=== PATIENT | male | born 1940 | race Caucasian/White ===

== ENCOUNTER 2017-09-10 09:57 | Inpatient (IN) | payer MEDICARE, BC ==
[~2017-09-10 09:57] MED LIST: CEFAZOLIN 2 Gram 2 GM/50 ML BAG IVPB ONE; CELECOXIB 100 MG CAPSULE PO ONE; FAMOTIDINE 20MG TABLET PO ONE; MECLIZINE 25 MG TABLET PO ONE; METOCLOPRAMIDE 10 MG TABLET PO ONE; VANCOMYCIN HCL 1,000 MG in DEXTROSE 5 % IN WATER 250 ML IVPB ONE
[2017-09-10 11:12] LABS: ABO GROUP O; RH TYPE NEGATIVE
[2017-09-10 11:13] LABS: ANTIBODY SCREEN POSITIVE (NEGATIVE)
[2017-09-10] MEDS ORDERED: 0.9 % SODIUM CHLORIDE 10 ML VIAL IVP ONE (14:00)
[2017-09-10] MEDS ORDERED: TRANEXAMIC ACID 1,000 MG/10 ML ML IV ONE (14:00)
[2017-09-10] MEDS ORDERED: ONDANSETRON HCL IV 4 MG/2 ML VIAL IVP PRN (14:02)
[2017-09-10] MEDS ORDERED: AL HYDROX/MAG HYDROX 30ML UD PO PRN (14:02)
[2017-09-10] MEDS ORDERED: TRAMADOL HCL 50 MG TABLET PO PRN (14:02)
[2017-09-10] MEDS ORDERED: NALOXONE 0.4 MG/1 ML VIAL IVP PRN (14:02)
[2017-09-10] MEDS ORDERED: BISACODYL 10 MG SUPP RC PRN (14:02)
[2017-09-10] MEDS ORDERED: ZOLPIDEM TARTRATE 5 MG TABLET PO PRN (14:02)
[2017-09-10] MEDS ORDERED: MAGNESIUM HYDROXIDE 30 ML UDC PO PRN (14:02)
[2017-09-10] MEDS ORDERED: ACETAMINOPHEN W/ CODEINE 300MG/60MG TABLET PO PRN ×2 (14:02)
[2017-09-10] MEDS ORDERED: DIPHENHYDRAMINE HCL 25 MG CAPSULE PO PRN (14:02)
[2017-09-10] MEDS ORDERED: HYDROCODONE/APAP 10/325 TABLET PO PRN (14:02)
[2017-09-10] MEDS ORDERED: ACETAMINOPHEN 325 MG TAB PO PRN (14:02)
[2017-09-10] MEDS ORDERED: HYDROMORPHONE HCL 2 MG/ML VIAL IM PRN (14:02)
[2017-09-10] MEDS ORDERED: KETOROLAC 30 MG/ML VIAL IVP PRN ×2 (14:02)
[2017-09-10] MEDS: HYDROCODONE/APAP 10/325 TABLET PO PRN (15:12)
--- NOTE | 2017-09-10 16:29 | Operative Note ---
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 POSTOPERATIVE DIAGNOSIS: PROFOUND END-STAGE ARTHROSIS OF THE LEFT KNEE. PROCEDURE: Cemented left total knee arthroplasty using [employer] Cony II components with a size 7 Bradshaw Chrome femur, size 7 stemmed tibial baseplate, an 11 mm lipped tibial insert, and a 35 mm all-plastic patella. STAFF SURGEON: JULIAN ZEE M.D. ANESTHESIA: GENERAL. PREPARATION: CHLORAPREP. INDIVIDUAL CONSIDERATIONS: This was not a standard procedure. This man had longstanding arthrosis with limited motion and an intramedullary nail. This required special techniques freehand-type to try and get the implants in because the normal guides could not be used. PROCEDURE: The patient was taken to the Operating Room and placed supine on the operating table. He had the successful induction of a general anesthetic. His left lower extremity was prepped and draped in the usual fashion. The patient had a midline approach to the knee. Sharp dissection was carried down through the skin and subcutaneous tissue. Small veins were coagulated with a Bovie. A medial arthrotomy was performed. The patella was everted and the knee was flexed. The patient's knee was destroyed. The ACL was sacrificed, fat pad was resected, provisional anterior meniscectomies were performed. The medial capsule was completely scarred. This was released from the medial proximal tibia. There was tremendous scarring around the femur and this was all released sharply. Once I did this and everted the patella, I was able to flex him to 90 degrees; initially it was only about 30. I could not use an intramedullary cutting jig. I basically put the guide with the pegs up against the femur, eyeballed it, adjusted it for bone loss medially, adjusted for rotation, and secured it with pins. I set it for roughly a 10 to 11 mm resection. The initial transverse cut was then made. Skin guide was placed in the anterior and posterior ship pilot holes. It was found that a size 7 would be appropriate. The anterior and posterior cuts followed by chamfer cuts were made. Osteophytes removed including osteophytes within the medial collateral and a size 7 trial was placed and found to fit well. The tibia was brought forward after debriding out the posterior compartments thoroughly and releasing scar from the femur and from the proximal tibia. The extra-articular tibia cutting jig was placed and it was cut in 7.0 degrees of valgus and adjusted for rotation and secured with pins for a 9 mm resection. When cutting the tibia, care was taken to preserve the PCL insertion on the tibia. After making the cut, huge osteophytes medially and posteromedially and some posterolaterally were removed and after removing osteophytes, I could still fit a size 7 implant. It was adjusted for rotation and secured with pins. With a 9 and then later an 11 mm implant, there was excellent motion and stability. Ligamentous balance, rotation, and alignment were thought to be normal. The femoral ship pilot holes were impacted, and the triflange tibial stamp was impacted, and these trial components were removed. The patient had a very thick patella with huge osteophytes and roughly 9 mm was removed with an oscillating saw and I was easily able to fit a 35 patella and the three ship pilot holes were drilled. The tourniquet was let down briefly to get bleeders posteriorly then placed back up again. Now, I did thorough irrigation with pulsatile Betadine and saline to remove any visual or palpable debris. Bony surfaces were then dried. A size 7 stem tibial baseplate was impacted into place, followed by impaction of the 11 mm lipped tibial insert, followed by cementing in the size 7 Bradshaw Chrome femur, followed by cementing of the 35 mm patella. Implant surfaces were compressed, excess cement was removed, and after the cement had set, I had reasonable motion. I actually could flex even with the patella to about 105 degrees. It was stable to varus and valgus and the tracking was normal. I did not require a lateral release. The tourniquet was let down and hemostasis was obtained with the Bovie. Again, thorough irrigation with pulsatile Betadine and saline to remove any visual or palpable debris. The periosteum, skin, and subcutaneous tissues were infiltrated with 0.75% Marcaine with Epinephrine. The capsule was then closed with a running #2 Quill, subcut was closed with running #0 Quill, and the skin was closed with ayesha. A gram of Tranexamic Acid was mixed with30 mL of saline and it was injected into the knee through a sterile 18-gauge needle and sterile Bulkee compressive dressing, Aquacel-type, was applied. The patient tolerated the procedures well. Needle and sponge counts were correct. Estimated blood loss was minimal. He was taken back to Recovery in good condition. There were no complications. JOB NUMBER: [id number] MTDD
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
[2017-09-10] MEDS: POTASSIUM CHLORIDE/D5-0.9%NACL 20 MEQ/1,000 ML BAG IV SCH (17:09)
[2017-09-10] MEDS: VOTRIENT 200 MG PO SCH ×2 (17:11→21:34)
[2017-09-10] MEDS: CEFAZOLIN 2 Gram 2 GM/50 ML BAG IVPB SCH (20:25)
[2017-09-10] MEDS: DOCUSATE SODIUM 100 MG CAPSULE PO SCH (21:28)
[2017-09-10] MEDS: PATIENT OWN MED: METOPROLOL TARTRATE 25 MG PO SCH (21:30)
[2017-09-10] MEDS ORDERED: PATIENT OWN MED: MULTIVITAMIN PO SCH (22:00)
[2017-09-10] MEDS ORDERED: PATIENT OWN MED: LOSARTAN 100 MG PO SCH (22:00)
[2017-09-10] MEDS ORDERED: HYDROCORTISONE 5 MG PO SCH (22:00)
[2017-09-10] MEDS ORDERED: LEVOTHYROXINE SODIUM 25 MCG TABLET PO SCH (22:00)
[2017-09-10] MEDS ORDERED: NIFEDIPINE 30 MG PO SCH (22:00)
[2017-09-11] MEDS: POTASSIUM CHLORIDE/D5-0.9%NACL 20 MEQ/1,000 ML BAG IV SCH ×2 (00:52→06:18)
[2017-09-11] MEDS: CEFAZOLIN 2 Gram 2 GM/50 ML BAG IVPB SCH ×2 (03:12→11:14)
[2017-09-11 06:33] LABS: HEMATOCRIT 35.1 % (42.0-52.0); HEMOGLOBIN 11.2 gm/dl (14.0-18.0)
[2017-09-11 06:48] LABS: CREATININE 1.3 mg/dL (0.7-1.2)
[2017-09-11] MEDS ORDERED: HYDROCORTISONE 100MG/VIAL IVP ONE (08:34)
[2017-09-11] MEDS ORDERED: SEVOFLURANE 250 ML INH ONE (08:34)
[2017-09-11] MEDS ORDERED: ATROPINE SULFATE 1 MG/ML VIAL IV ONE (08:34)
[2017-09-11] MEDS ORDERED: LIDOCAINE 2% MDV (20MG/ML) 20ML VIAL IV ONE (08:34)
[2017-09-11] MEDS ORDERED: FENTANYL PF 100MCG/2ML VIAL IV ONE (08:34)
[2017-09-11] MEDS ORDERED: PROPOFOL 10 MG/ML VIAL IV ONE (08:34)
[2017-09-11] MEDS ORDERED: HYDROCORTISONE 5 MG PO SCH (10:00)
[2017-09-11] MEDS ORDERED: PATIENT OWN MED: CLOPIDOGREL 75 MG PO SCH (10:00)
[2017-09-11] MEDS ORDERED: FERROUS SULFATE 325 MG TAB PO SCH (10:00)
[2017-09-11] MEDS ORDERED: FLUDROCORTISONE 0.1 MG PO SCH (10:00)
[2017-09-11] MEDS ORDERED: PATIENT OWN MED: LOVASTATIN 40 MG PO SCH (10:00)
[2017-09-11] MEDS ORDERED: NIFEDIPINE 90 MG PO SCH (10:00)
[2017-09-11] MEDS ORDERED: ASPIRIN 325 MG TAB ENTERIC-COATED PO SCH (10:00)
[2017-09-11] MEDS: DOCUSATE SODIUM 100 MG CAPSULE PO SCH (10:02)
[2017-09-11] MEDS: PATIENT OWN MED: METOPROLOL TARTRATE 25 MG PO SCH (10:06)
[2017-09-11] MEDS: VOTRIENT 200 MG PO SCH (10:11)
--- NOTE | 2017-09-11 10:52 | Physical Therapy Tx Note ---
Physical Therapy Tx Note - Treatment Note Tolerated: Good (Patient is doing extremely well today; very little pain and mobility going well then able to walk with FWW with WBAT on left down greene about 200 feet then down and up three steps with rail and folded FWW safely and correctly. Independent with bed mobility as well but a little trouble with knee bending yet.) Total Time Spent With Patient: 30 Physical Therapy Tx Note: Detail (Patient seen bedside, already standing up getting ready to walk; able to get out of bed independently. Ambulated with FWW about 200 feet in greene then down three steps with folded FWW and rail and SBA, pivoted around and ambulated back up three steps with good technique and SBA. Worked on exercises seated with good technique but only about 60 degrees knee flexion, near full extension. Patient able to move furniture around in room also and set self up in chair with leg elevated on another chair with pillow.) Physical Therapy Problem List: Detail (Decreased L knee strength and ROM as expected s/p L TKA Non-ambulatory on stairs) Physical Therapy Goals: 1) Evaluate Bed Mobility. 2) Independent in Bed mobility. 3) Able to ascend/descend 3 stairs with supervision. 4) Independent in HEP Prognosis: Good (Patient doing very well and has met most of goals already but having some issues with knee ROM yet. Able to ambulate independently as much as wants to.) Physical Therapy Plan: PT 1-2x/day for gait training, bed mobility, instruction of HEP, and transfer training until inpatient PT goals are met.
[2017-09-11] MEDS: HYDROCODONE/APAP 10/325 TABLET PO PRN (11:14)
[2017-09-11] MEDS ORDERED: TRANEXAMIC ACID 1,000 MG/10 ML ML IV ONE (12:52)
[2017-09-11] MEDS ORDERED: BUPIVACAINE 0.75% W/EPI MPF 30ML VIAL IVP ONE (12:52)
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
--- NOTE | 2017-09-11 19:29 | Discharge Summary ---
DATE OF ADMISSION: 09/10/2017 DATE OF DISCHARGE: 09/11/2017 DATE OF SURGERY: 09/10/2017 HISTORY: Mr. Martinez is a delightful 77-year-old male presenting with end-stage arthrosis of his left knee. He was admitted after a left total knee arthroplasty. Postoperatively, he did extremely well. His hospital course was unremarkable. DISCHARGE INSTRUCTIONS: The plan is to discharge him to home in the care of his family. Home PT and Visiting Nurses have been arranged. His sutures will be removed in two weeks. He will follow-up in my office in four weeks. He will be given [place] for pain. He normally takes Plavix and I added Aspirin to that; regular Aspirin for the next 15 days and after 15 days he will go back to taking his low-dose Aspirin. FINAL DIAGNOSIS/PRIMARY DIAGNOSIS: END-STAGE ARTHROSIS OF THE LEFT KNEE. OPERATIONS AND PROCEDURES: CEMENTED LEFT TOTAL KNEE ARTHROPLASTY. DISCHARGE CONDITION: GOOD. cc: Dr. Ruano JOB NUMBER: [id number] MTDD
== END 2017-09-11 14:25 | disposition home health service (06) | DRG 470 ==
LOC: MEDSURG 09:57
PROVIDERS: ADMIT Orthopaedic Surgery; ATTEND Orthopaedic Surgery
PROC: 0SRD069 Replacement of Left Knee Joint with Oxidized Zirconium on Polyethylene Synthetic Substitute, Cemented, Open Approach (ICD-10-PCS; principal; 2017-09-10 12:00)
DX: M17.12 Unilateral primary osteoarthritis, left knee (principal); I10 Essential (primary) hypertension; Z79.01 Long term (current) use of anticoagulants; E78.00 Pure hypercholesterolemia, unspecified; E03.9 Hypothyroidism, unspecified; Z85.118 Personal history of other malignant neoplasm of bronchus and lung; Z85.528 Personal history of other malignant neoplasm of kidney
CPT/HCPCS: 80048; 85014; 85018; 86850; 86900; 86901; 97110; 97116; 97165; J0460; J1720; J3480; J3490; J7060